=== PATIENT | male | born 1960 | race Caucasian/White ===

== ENCOUNTER → 2023-07-30 10:33 | Outpatient (REF) | payer OTHER, SELFPAY | LOC: RCS 10:33 | PROVIDERS: ATTENDING PHYSICIAN Nurse Practitioner | DX: R07.9 Chest pain, unspecified (principal) | CPT/HCPCS: 93225; 93226 ==

== ENCOUNTER → 2023-12-02 10:39 | Outpatient (REF) | payer OTHER, SELFPAY | LOC: RAD 10:39 | PROVIDERS: ATTENDING PHYSICIAN Ophthalmology; FAMILY PHYSICIAN Internal Medicine | DX: R51.9 Headache, unspecified (principal) | CPT/HCPCS: 70450; 70480 ==